=== PATIENT | female | born 1995 | race American Indian/Alaskan Native ===

== ENCOUNTER 2017-07-30 19:09 | Emergency (ER) | payer MEDICAID ==
[2017-07-30 19:45] LABS: Bacteria,Urine 1+ /HPF (Negative); Bilirubin,Urine NEG (Negative); Blood,Urine SM (Negative); Color,Urine Yellow (Yellow); Nitrite,Urine NEG (Negative); Protein,Urine <15 mg/dL mg/dL (Negative); Urobilinogen,Urine < 2.0 mg/dL (<2.0)
[2017-07-30 20:11] LABS: Basophils % (Auto) 0.6 % (0.0-1.8); Eosinophils # (Auto) 0.2 K/mm3 (0.0-0.4); Eosinophils % (Auto) 3.5 % (0.0-4.3); Hematocrit 38.3 % (30.3-42.9); Hemoglobin 12.8 gm/dl (10.1-14.3); Lymphocytes # (Auto) 2.8 K/mm3 (1.2-5.4); Lymphocytes % (Auto) 45.1 % (13.4-35.0); Mean Corpuscular HGB Conc 34 % (30-34); Mean Corpuscular Hemoglobin 30 pg (28-32); Mean Corpuscular Volume 89 fl (79-97); Monocytes # (Auto) 0.6 K/mm3 (0.0-0.8); Monocytes % (Auto) 10.1 % (0.0-7.3); Platelet Count 303 K/mm3 (140-440); Red Cell Distribution Width 13.9 % (13.2-15.2)
[2017-07-30 20:51] LABS: Alanine Aminotransferase 12 units/L (7-56); Albumin 4.7 g/dL (3.9-5); BUN/Creatinine Ratio 15; Blood Urea Nitrogen 6 mg/dL (7-17); Calcium 9.6 mg/dL (8.4-10.2); Hemolysis Index 2; Lipase 16 units/L (13-60)
--- NOTE | 2017-07-30 22:07 | Ultrasound Report ---
FINAL REPORT EXAM: US OB TRANSVAGINAL HISTORY: vaginal bleed, pelvic pain LMP 05/31/2017 with estimated age 8 weeks 4 days and EDC 03/07/2018. Quantitative beta HCG is 35,402. TECHNIQUE: Ultrasound of the pelvis using transabdominal and transvaginal imaging PRIORS: None. FINDINGS: Uterus: Uterus is enlarged in size and normal and homogeneous in echogenicity without focal fibroid formation. The uterus measures 8.1 x 4.7 x 4.4 cm in size. There is a single early viable intrauterine gestation noted. Intrauterine gestation: There is a single intrauterine gestation identified with both a pole and yolk sac. heart rate is monitored at 108 BPM using M-mode doppler. [place]-rump length measurement of 5.9 mm corresponds to estimated age 6 weeks 3 days with EDC 03/22/2018. There is a small subchorionic hemorrhage measuring 4 x 6 x 4 mm located along the caudal right side of the gestational sac. Ovaries: Both ovaries appear normal in size and echogenicity with normal blood flow bilaterally. The right ovary measures 3.6 x 2.8 x 2.4 cm and the left ovary measures 3.3 x 2.4 x 2.1 cm in size. There is a complex avascular cyst in the right ovary measuring 1.7 cm, probably a corpus luteum. Other: There is no evidence for solid adnexal mass is seen. There is no free fluid in the cul-de-sac. IMPRESSION: Single intrauterine viable with an approximate age of 8 weeks 3 days. Small subchorionic hemorrhage is present.
--- NOTE | 2017-07-30 22:07 | Ultrasound Report ---
FINAL REPORT EXAM: US OB < = 14 WEEKS FETUS HISTORY: vaginal bleed, pelvic pain LMP 05/31/2017 with estimated age 8 weeks 4 days and EDC 03/07/2018. Quantitative beta HCG is 35,402. TECHNIQUE: Ultrasound of the pelvis using transabdominal and transvaginal imaging PRIORS: None. FINDINGS: Uterus: Uterus is enlarged in size and normal and homogeneous in echogenicity without focal fibroid formation. The uterus measures 8.1 x 4.7 x 4.4 cm in size. There is a single early viable intrauterine gestation noted. Intrauterine gestation: There is a single intrauterine gestation identified with both a pole and yolk sac. heart rate is monitored at 108 BPM using M-mode doppler. [place]-rump length measurement of 5.9 mm corresponds to estimated age 6 weeks 3 days with EDC 03/22/2018. There is a small subchorionic hemorrhage measuring 4 x 6 x 4 mm located along the caudal right side of the gestational sac. Ovaries: Both ovaries appear normal in size and echogenicity with normal blood flow bilaterally. The right ovary measures 3.6 x 2.8 x 2.4 cm and the left ovary measures 3.3 x 2.4 x 2.1 cm in size. There is a complex avascular cyst in the right ovary measuring 1.7 cm, probably a corpus luteum. Other: There is no evidence for solid adnexal mass is seen. There is no free fluid in the cul-de-sac. IMPRESSION: Single intrauterine viable with an approximate age of 8 weeks 3 days. Small subchorionic hemorrhage is present.
--- NOTE | 2017-07-31 07:12 | Emergency Department Report ---
ED Female HPI - General Chief complaint: Vaginal Bleeding Stated complaint: 8 wks bleeding and cramping Time Seen by Provider: 07/31/17 07:04 Source: patient Mode of arrival: Ambulatory Limitations: No Limitations - History of Present Illness Initial comments: Patient is 21 years old female, 8 weeks presented today with lower abdominal pain, cramping in nature associated with vaginal bleeding for the last 3 days. Patient denied any nausea or vomiting no diarrhea. MD Complaint: vaginal bleeding -: days(s) (3 days) Severity: moderate Quality: cramping - Related Data Sexually active: Yes Allergies Allergy/AdvReac Type Severity Reaction Status Date / Time No Known Allergies Allergy Unverified 04/29/13 14:14 ED Review of Systems ROS: Stated complaint: 8 wks bleeding and cramping Other details as noted in HPI Comment: All other systems reviewed and negative Constitutional: denies: chills, diaphoresis Respiratory: denies: cough, shortness of breath, SOB with exertion Cardiovascular: denies: chest pain, palpitations Gastrointestinal: abdominal pain. denies: nausea, vomiting, diarrhea, hematemesis, melena, hematochezia Genitourinary: denies: urgency, dysuria, frequency, hematuria Musculoskeletal: denies: back pain Skin: denies: rash Neurological: denies: headache, weakness ED Past Medical Hx - Past Medical History Previous Medical History?: No - Surgical History Past Surgical History?: No - Social History Smoking Status: Never Smoker Substance Use Type: None ED Physical Exam - General Limitations: No Limitations General appearance: alert, in no apparent distress - Head Head exam: Present: atraumatic, normocephalic, normal inspection - Eye Eye exam: Present: normal appearance, PERRL - ENT ENT exam: Present: normal exam, normal orophraynx, mucous membranes moist - Neck Neck exam: Present: normal inspection. Absent: tenderness, meningismus, full ROM, lymphadenopathy - Respiratory Respiratory exam: Present: normal lung sounds bilaterally. Absent: respiratory distress, wheezes, rales, rhonchi, stridor, chest wall tenderness, accessory muscle use, decreased breath sounds, prolonged expiratory - Cardiovascular Cardiovascular Exam: Present: regular rate, normal rhythm, normal heart sounds. Absent: bradycardia, tachycardia - GI/Abdominal GI/Abdominal exam: Present: soft, tenderness (suprapubic), normal bowel sounds. Absent: distended, guarding, rebound, rigid, mass, bruit, pulsatile mass, hernia - Extremities Exam Extremities exam: Present: normal inspection. Absent: pedal edema - Back Exam Back exam: Absent: CVA tenderness (R), CVA tenderness (L) - Neurological Exam Neurological exam: Present: alert. Absent: oriented X3, CN II-XII intact, normal gait - Skin Skin exam: Present: warm, intact, normal color ED Course Vital Signs 07/30/17 07/31/17 19:15 05:23 Temperature 98.9 F Pulse Rate 68 Respiratory 16 20 Rate Blood Pressure 115/84 [Right] O2 Sat by Pulse 100 Oximetry ED Medical Decision Making - Lab Data Result diagrams: 07/30/17 19:30 07/30/17 19:30 - Radiology Data Radiology results: report reviewed Referring Physician: SHEILA TOBAR Patient Name: JESSIKA BANERJEE Date of : 1995 Sex: Female Report Date: 2017-07-30 Report Status: [place] [address] Ultrasound Report Signed Patient: JESSIKA BANERJEE MR#: [id number] : 1995 Acct:[id number] Age/Sex: 21 / F ADM Date: 07/30/17 Loc: ED Attending Dr: Ordering Physician: SHEILA TOBAR MD Date of Service: 07/30/17 Procedure(s): US OB transvaginal Accession Number(s): [id number] cc: SHEILA TOBAR MD FINAL REPORT EXAM: US OB TRANSVAGINAL HISTORY: vaginal bleed, pelvic pain LMP 05/31/2017 with estimated age 8 weeks 4 days and EDC 03/07/2018. Quantitative beta HCG is 35,402. TECHNIQUE: Ultrasound of the pelvis using transabdominal and transvaginal imaging PRIORS: None. FINDINGS: Uterus: Uterus is enlarged in size and normal and homogeneous in echogenicity without focal fibroid formation. The uterus measures 8.1 x 4.7 x 4.4 cm in size. There is a single early viable intrauterine gestation noted. Intrauterine gestation: There is a single intrauterine gestation identified with both a pole and yolk sac. heart rate is monitored at 108 BPM using M-mode doppler. [place]-rump length measurement of 5.9 mm corresponds to estimated age 6 weeks 3 days with EDC 03/22/2018. There is a small subchorionic hemorrhage measuring 4 x 6 x 4 mm located along the caudal right side of the gestational sac. Ovaries: Both ovaries appear normal in size and echogenicity with normal blood flow bilaterally. The right ovary measures 3.6 x 2.8 x 2.4 cm and the left ovary measures 3.3 x 2.4 x 2.1 cm in size. There is a complex avascular cyst in the right ovary measuring 1.7 cm, probably a corpus luteum. Other: There is no evidence for solid adnexal mass is seen. There is no free fluid in the cul-de-sac. IMPRESSION: Single intrauterine viable with an approximate age of 8 weeks 3 days. Small subchorionic hemorrhage is present. Transcribed By: [facility] Dictated By: CHEYENNE PRESCOTT MD Electronically Authenticated By: CHEYENNE PRESCOTT MD Signed Date/Time: 07/30/171802 DD/ 02 TD/TT: 07/30/171802 Critical care attestation.: If time is entered above; I have spent that time in minutes in the direct care of this critically ill patient, excluding procedure time. ED Disposition Clinical Impression: Abdominal pain affecting , Vaginal bleeding during , antepartum, UTI in Disposition: DC-01 TO HOME OR SELFCARE Is pt being admited?: No Condition: Stable Instructions: Abdominal Pain in (ED), Urinary Tract Infection in Women (ED) Referrals: CHRISTIANO PERES MD [Primary Care Provider] - 3-5 Days Forms: Work/School Release Form(ED)
[2017-07-31 07:34] VITALS: BP 97/69
== END 2017-07-31 07:50 | disposition home or self-care (01) ==
LOC: ED 19:09
DX: O46.91 Antepartum hemorrhage, unspecified, first trimester (principal); O23.41 Unspecified infection of urinary tract in pregnancy, first trimester; Z3A.08 8 weeks gestation of pregnancy
CPT/HCPCS: 36415; 76801; 76817; 80053; 81001; 83690; 84702; 85025; 86850; 86900; 86901

== ENCOUNTER 2018-02-04 18:08 | Outpatient (CLI) | payer MEDICAID ==
[2018-02-04] MEDS ORDERED: LACTATED RINGERS 500 ML IV ONE (18:10)
[2018-02-04 19:16] LABS: Bacteria,Urine 1+ /HPF (Negative); Bilirubin,Urine NEG (Negative); Blood,Urine NEG (Negative); Color,Urine Yellow (Yellow); Mucus,Urine FEW /HPF; Protein,Urine <15 mg/dL mg/dL (Negative); Urobilinogen,Urine < 2.0 mg/dL (<2.0)
[2018-02-04 19:27] LABS: Amphetamine Screen,Urine PRESUMPTIVE NEGATIVE; Benzodiazepines Screen,Urine PRESUMPTIVE NEGATIVE; Cocaine Screen,Urine PRESUMPTIVE NEGATIVE; Methadone Screen,Urine PRESUMPTIVE NEGATIVE; Opiate Screen,Urine PRESUMPTIVE NEGATIVE
[2018-02-04 19:39] VITALS: BP 100/67
[2018-02-04 20:08] LABS: Cannabinoid Screen,Urine PRESUMPTIVE POSITIVE
== END 2018-02-04 19:57 | disposition home or self-care (01) ==
LOC: TRG 18:08
PROVIDERS: ATTEND Obstetrics & Gynecology
DX: O47.03 False labor before 37 completed weeks of gestation, third trimester (principal); Z3A.33 33 weeks gestation of pregnancy; Z87.891 Personal history of nicotine dependence; Z79.899 Other long term (current) drug therapy
CPT/HCPCS: 59025; 80307; 81001; 96360; J7120

== ENCOUNTER 2018-03-16 04:36 | Inpatient (IN) | payer MEDICAID ==
[2018-03-16] MEDS ORDERED: POLYCILLIN/NS 2 GM/100 ML 2 GM/100 ML BAG IV ONE (05:05)
[2018-03-16] MEDS ORDERED: LACTATED RINGERS 1,000 ML IV ONE (05:05)
[2018-03-16 06:45] LABS: Hematocrit 31.8 % (30.3-42.9); Hemoglobin 10.6 gm/dl (10.1-14.3); Mean Corpuscular HGB Conc 33 % (30-34); Mean Corpuscular Hemoglobin 30 pg (28-32); Mean Corpuscular Volume 89 fl (79-97); Platelet Count 295 K/mm3 (140-440); Red Blood Count 3.56 M/mm3 (3.65-5.03); Red Cell Distribution Width 14.7 % (13.2-15.2)
[2018-03-16] MEDS ORDERED: XYLOCAINE 2% INFILTRATI ONE (07:37)
[2018-03-16] MEDS ORDERED: ZOFRAN IV PRN (07:37)
[2018-03-16] MEDS ORDERED: ePHEDrine SULFATE IV PRN ×2 (07:37→10:25)
[2018-03-16] MEDS ORDERED: SUBLIMAZE IV PRN (07:37)
[2018-03-16] MEDS ORDERED: MINERAL OIL PO PRN (07:37)
[2018-03-16] MEDS ORDERED: BRETHINE SUB-Q PRN (07:37)
[2018-03-16] MEDS ORDERED: LACTATED RINGERS 1,000 ML IV SCH (08:00)
[2018-03-16] MEDS ORDERED: PITOCin/NS 30 UNIT/500ML 30 UNITS/500 ML BAG IV SCH (08:00)
[2018-03-16] MEDS ORDERED: PITOCin/NS 20 UNIT/1000ML DRIP 20 UNITS/1,000 ML BAG IV SCH ×2 (08:00→21:00)
[2018-03-16] MEDS ORDERED: AMPICILLIN/NS 1 GM/50 ML 1 GM/50 ML BAG IV SCH (09:00)
[2018-03-16] MEDS ORDERED: NARCAN 2 MG/2 ML IV PRN (10:25)
--- NOTE | 2018-03-16 10:25 | Anesthesia Consultation ---
Anesthesia Consult and Med Hx Date of service: 03/16/18 - Airway Anesthetic Teeth Evaluation: Good ROM Head & Neck: Adequate Mental/Hyoid Distance: Adequate Mallampati Class: Class II Intubation Access Assessment: Good - Pulmonary Exam CTA: Yes - Cardiac Exam Cardiac Exam: No Murmur - Pre-Operative Health Status ASA Pre-Surgery Classification: ASA2 Proposed Anesthetic Plan: Epidural - Pulmonary Hx Asthma: No Hx Pneumonia: No - Cardiovascular System Hx Hypertension: No - Central Nervous System Hx Seizures: No Hx Psychiatric Problems: No - Endocrine Hx Renal Disease: No Hx Hypothyroidism: No Hx Hyperthyroidism: No - Hematic Hx Anemia: No Hx Sickle Cell Disease: No - Other Systems Hx Alcohol Use: No
[2018-03-16] MEDS ORDERED: fentaNYL-BUPIV 2 MCG/ML-0.125% 200 MCG/100 ML BAG EPIDURAL SCH (11:00)
--- NOTE | 2018-03-16 11:54 | History and Physical Report ---
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, trichomonas Family/Genetic History: none Social history: denies: smoking, alcohol abuse, prescription drug abuse - Obstetrical History Expected Date of Delivery: 03/20/18 Actual Gestation: 39 Week(s) 3 Day(s) : 1 Para: 0 Hx # Term Pregnancies: 0 Number of Pregnancies: 0 Spontaneous Abortions: 0 Induced : 0 Number of Living Children: 0 Medications and Allergies Allergies Allergy/AdvReac Type Severity Reaction Status Date / Time No Known Allergies Allergy Unverified 04/29/13 14:14 Home Medications Medication Instructions Recorded Confirmed Last Taken Type Nitrofurantoin [place]/M-Cryst 100 mg PO Q12HR #14 capsule 07/31/17 02/04/18 Unknown Rx [Macrobid CAP] Ondansetron [Zofran Odt] 4 mg PO Q8HR PRN #14 tab.rapdis 07/31/17 02/04/18 Unknown Rx Ferrous Gluconate [Iron 256 MG tab] 1 tab PO QDAY 02/04/18 02/04/18 1 Month Ago History ~01/04/18 Pnv No.103/Folic/Om3s/Fish Oil 2 tab PO QDAY 02/04/18 02/04/18 02/04/18 10:00 History [ Gummies] Active Meds: Active Medications Ephedrine Sulfate (Ephedrine Sulfate) 10 mg IV Q2M PRN PRN Reason: Hypotension Last Admin: 03/16/18 10:35 Dose: 10 mg Ephedrine Sulfate (Ephedrine Sulfate) 10 mg IV Q2M PRN PRN Reason: Hypotension Fentanyl (Sublimaze) 100 mcg IV Q2H PRN PRN Reason: Labor Pain Ampicillin Sodium (Ampicillin/Ns 1 Gm/50 Ml) 1 gm in 50 mls @ 100 mls/hr IV Q4HR NATHAN; Protocol Lactated Ringer's (Lactated Ringers) 1,000 mls @ 125 mls/hr IV DIRECT NATHAN Oxytocin/Sodium Chloride (Pitocin/Ns 20 Unit/1000ml Drip) 20 units in 1,000 mls @ 125 mls/hr IV DIRECT NATHAN Oxytocin/Sodium Chloride (Pitocin/Ns 30 Unit/500ml) 30 units in 500 mls @ 4 mls /hr IV TITR NATHAN; Protocol Last Admin: 03/16/18 08:55 Dose: 4 ml/hr, 4 mls/hr Fentanyl/Bupivacaine/Sodium Chlor (Fentanyl-Bupiv 2 Mcg/Ml-0.125%) 200 mcg in 100 mls @ 12 mls/hr EPIDURAL TITR NATHAN; Protocol Last Admin: 03/16/18 10:38 Dose: 12 mls/hr Mineral Oil (Mineral Oil) 30 ml PO QHS PRN PRN Reason: Constipation Naloxone HCl (Narcan 2 Mg/2 Ml) 0.2 mg IV Q5M PRN PRN Reason: Respiratory sedation Ondansetron HCl (Zofran) 4 mg IV Q8H PRN PRN Reason: Nausea And Vomiting Terbutaline Sulfate (Brethine) 0.25 mg SUB-Q ONCE PRN PRN Reason: Hyperstimulation/Hypertonicity Review of Systems All systems: negative - Vital Signs Vital signs: Vital Signs Temp Pulse Resp BP 98.6 F 83 18 113/71 03/16/18 04:56 03/16/18 04:56 03/16/18 04:56 03/16/18 04:56 Temp Pulse Resp BP Pulse Ox 98.6 F 118 H 18 107/66 100 03/16/18 04:56 03/16/18 11:38 03/16/18 04:56 03/16/18 11:38 03/16/18 10:36 - Physical Exam Breasts: Positive: normal Cardiovascular: Regular rate Lungs: Positive: Clear to auscultation, Normal air movement Abdomen: Positive: normal appearance, soft Genitourinary (Female): Positive: normal external genitalia, normal perenium Vulva: both: normal Vagina: Positive: normal moisture Uterus: Positive: normal size Anus/Rectum: Positive: normal perianal skin Extremities: Positive: normal Deep Tendon Reflex Grade: Normal +2 - Obstetrical FHR: category 1 Uterine Contraction Monitor Mode: External Cervical Dilatation: 6 (+ clear fluid with blood show, vertex) Cervical Effacement Percentage: 80 station: -1 Uterine Contraction Frequency (min): 2-3 Uterine Contraction Duration: 60 Uterine Contraction Pattern: Regular Uterine Tone Measurement Phase: Contraction Uterine Contraction Intensity: Mild Results Result Diagrams: 03/16/18 05:25 Abnormal lab results 03/16/18 Range/Units 05:25 RBC 3.56 L (3.65-5.03) M/mm3 All other labs normal. Assessment and Plan 22y/o @ 39+ weeks arrived via EMS for SROM. She receives care with Dr. Toro. Records received from his office and reviewed. + GBS. Admission orders in EMR. Currently comfortable with epidural. second dose of ampicillin for GBS infusing. Plan to titrate pitocin for adequate labor. - Patient Problems (1) GBS (group B Streptococcus carrier), +RV culture, currently Current Visit: Yes Status: Acute (2) 39 weeks gestation of Current Visit: Yes Status: Acute (3) SROM (spontaneous rupture of membranes) Current Visit: Yes Status: Acute
[2018-03-16 12:37] LABS: Amphetamine Screen,Urine PRESUMPTIVE NEGATIVE; Benzodiazepines Screen,Urine PRESUMPTIVE NEGATIVE; Cocaine Screen,Urine PRESUMPTIVE NEGATIVE; Methadone Screen,Urine PRESUMPTIVE NEGATIVE; Opiate Screen,Urine PRESUMPTIVE NEGATIVE
[2018-03-16 12:53] LABS: Cannabinoid Screen,Urine PRESUMPTIVE POSITIVE
[2018-03-16] MEDS ORDERED: CYTOTEC ONE (16:15)
--- NOTE | 2018-03-16 16:30 | Procedure Note ---
OB Delivery Note - Delivery Date of Delivery: 03/16/18 ( male) Window Glass Installer: JHON MENESES Estimated blood loss: other (450) - Vaginal Delivery presentation: vertex Delivery position: OA (RED) Intrapartum events: none Delivery induction: none Delivery augmentation: pitocin Delivery monitor: external FHT, internal uterine Route of delivery: Delivery placenta: spontaneous Delivery cord: 3 umbilical vessels Episiotomy: none Delivery laceration: 1st degree (vaginal laceration; not bleeding, not repaired) Anesthesia: epidural Delivery comments: male infant del over intact perineum, RED. Infant dried and stimulated on mother's abdomen. no shoulder dystocia. 3 vessel cord clamped and cut. placenta del intact and complete. Pit to IVF. uterus boggy with increased bleeding after del of placenta. Fundal massage, straight cath and cytotec 800mcg placed [place] resolved bleeding. EBL 450. Apgars 8/9, wt 7#4. small vaginal laceration hemostatic - not repaired. Mother and remain LDR stable. - Infant A at 1 minute: 8 at 5 minutes: 9 Infant Gender: Male (7#4oz)
[2018-03-16] MEDS ORDERED: CYTOTEC PR ONE (18:00)
[2018-03-16] MEDS ORDERED: SODIUM CHLORIDE FLUSH SYRINGE 10 ML IV SCH (19:59)
[2018-03-16] MEDS ORDERED: TYLENOL PO PRN (19:59)
[2018-03-16] MEDS ORDERED: BENADRYL PO PRN (19:59)
[2018-03-16] MEDS ORDERED: TUCKS PAD TP PRN (19:59)
[2018-03-16] MEDS ORDERED: PHENERGAN PO PRN (19:59)
[2018-03-16] MEDS ORDERED: DERMOPLAST TP PRN (19:59)
[2018-03-16] MEDS ORDERED: DULCOLAX PR PRN (19:59)
[2018-03-16] MEDS ORDERED: LANSINOH TP PRN (19:59)
[2018-03-16] MEDS ORDERED: MILK OF MAGNESIA PO PRN (19:59)
[2018-03-16] MEDS: MOTRIN PO SCH (22:13)
[2018-03-16] MEDS: FEOSOL PO SCH (22:13)
[2018-03-16] MEDS: COLACE PO SCH (22:14)
[2018-03-17] MEDS: MOTRIN PO SCH ×4 (05:44→23:45)
--- NOTE | 2018-03-17 06:59 | Discharge Summary ---
Providers - Providers Date of Admission: 03/16/18 05:44 Date of discharge: 03/17/18 (pt desires d/c today if possible) Attending physician: DANIEL GALVEZ 03/16/18 19:59 Consult to Roofing Plant Supervisor [CONS] Routine Reason For Exam: assistance with , SNS Primary care physician: DANIEL GALVEZ Hospitalization Reason for admission: active labor Delivery: Episiotomy: none Laceration: none Incision: normal Other procedures: none complications: none Discharge diagnosis: IUP at term delivered baby: male Hospital course: uncomplicated vaginal delivery Pt resting No c/o voiced VSS FF below umb Lochia small perineum intact H&H pending Doing well s/p vag delivery P: d/c today if baby is cleared. RTO 1 week circ and 4 weeks for PP care Condition at discharge: Good Disposition: DC-01 TO HOME OR SELFCARE - Discharge Diagnoses (1) (normal spontaneous vaginal delivery) Status: Acute Comment: RTO 4 weeks PP care Plan - Discharge Medications Prescriptions: Lidocain2.5%/Prilocai2.5% [Emla] 5 gm TP PRN #1 tube - Provider Discharge Summary Activity: routine, no heavy lifting 4 weeks, no strenuous exercise Diet: routine Instructions: routine Additional instructions: [] Smoking cessation referral if applicable(refer to patient education folder for contact #) [] Refer to [facility]'s [facility] Booklet Call your doctor immediately for: * Fever > 100.5 * Heavy vaginal bleeding ( >1 pad per hour) * Severe persistent headache * Shortness of breath * Reddened, hot, painful area to leg or breast * Drainage or odor from incision. * Keep incision clean and dry at all times and follow doctor's instructions regarding bathing/showering - Follow up plan Follow up: DANIEL GALVEZ MD [Primary Care Provider] - 7 Days (Congratulations! Please call [phone] to schedule your visit in 4 weeks and your son's circumcision in 1 week. Bring the EMLA cream with you to his visit. Do NOT use at home. [facility] [address] [address] [facility] [address])
[2018-03-17 07:57] LABS: Hematocrit 27.8 % (30.3-42.9); Hemoglobin 9.3 gm/dl (10.1-14.3)
[2018-03-17] MEDS ORDERED: PRENATAL VITAMIN PO SCH (10:00)
[2018-03-17] MEDS: FEOSOL PO SCH ×2 (12:03→23:44)
[2018-03-17] MEDS ORDERED: BOOSTRIX IM ONE (16:31)
[2018-03-17] MEDS: COLACE PO SCH (23:44)
[2018-03-18 01:19] VITALS: BP 102/64
[2018-03-18] MEDS: MOTRIN PO SCH (06:00)
== END 2018-03-18 10:15 | disposition home or self-care (01) | DRG 774 ==
LOC: TRG 04:36 → LD 05:44 → OB 18:01
PROVIDERS: ADMIT Obstetrics & Gynecology; ATTEND Obstetrics & Gynecology
PROC: 10E0XZZ Delivery of Products of Conception, External Approach (ICD-10-PCS; principal; 2018-03-16)
PROC: 3E0R3BZ Introduction of Anesthetic Agent into Spinal Canal, Percutaneous Approach (ICD-10-PCS; 2018-03-16)
PROC: 00HU33Z Insertion of Infusion Device into Spinal Canal, Percutaneous Approach (ICD-10-PCS; 2018-03-16)
DX: O99.824 Streptococcus B carrier state complicating childbirth (principal); O98.22 Gonorrhea complicating childbirth; O70.0 First degree perineal laceration during delivery; Z3A.39 39 weeks gestation of pregnancy; Z37.0 Single live birth; O98.32 Other infections with a predominantly sexual mode of transmission complicating childbirth; A59.9 Trichomoniasis, unspecified
CPT/HCPCS: 36415; 80307; 85014; 85018; 85027; 86592; 86706; 86850; 86900; 86901; 99211; G0463; J0290; J2590; J7120

== ENCOUNTER 2018-10-27 21:32 | Emergency (ER) | payer MEDICAID, OTHER ==
--- NOTE | 2018-10-27 21:43 | Emergency Department Report ---
Blank Doc - Documentation Documentation: This is a 22-year-old female that presents with mid/lower back pain. Denies any injuries or trauma. Denies any urinary symptoms. This initial assessment/diagnostic orders/clinical plan/treatment(s) is/are subject to change based on patient's health status, clinical progression and re- assessment by fellow clinical providers in the ED. Further treatment and workup at subsequent clinical providers discretion. Patient/guardians urged not to elope from the ED as their condition may be serious if not clinically assessed and managed. Initial orders include: 1- Patient sent to MAIN ED for further evaluation and treatment 2- UA/preg test
[2018-10-27 23:21] LABS: Bacteria,Urine 1+ /HPF (Negative); Bilirubin,Urine NEG (Negative); Blood,Urine NEG (Negative); Color,Urine Yellow (Yellow); Mucus,Urine FEW /HPF
[2018-10-27 23:22] LABS: HCG Qualitative,Urine Negative (Negative)
[2018-10-27 23:23] LABS: WBC,Urine > 182.0 /HPF (0.0-6.0)
[2018-10-28] MEDS ORDERED: TORADOL IM ONE (00:07)
--- NOTE | 2018-10-28 00:09 | Emergency Department Report ---
ED Female HPI - General Chief complaint: Abdominal Pain Stated complaint: BACK PAIN Time Seen by Provider: 10/27/18 21:43 Source: patient Mode of arrival: Ambulatory Limitations: No Limitations - History of Present Illness MD Complaint: dysuria, other (flank pain, left) -: days(s) Quality: sharp Worsens with: urination - Related Data Home Medications Medication Instructions Recorded Confirmed Last Taken No Known Home Medications [No 10/27/18 10/27/18 Unknown Reported Home Medications] Allergies Allergy/AdvReac Type Severity Reaction Status Date / Time No Known Allergies Allergy Verified 10/27/18 21:35 ED Review of Systems ROS: Stated complaint: BACK PAIN Other details as noted in HPI Comment: All other systems reviewed and negative Constitutional: denies: chills, fever Respiratory: denies: cough, orthopnea, shortness of breath, SOB with exertion Cardiovascular: denies: chest pain, palpitations Gastrointestinal: denies: abdominal pain, nausea, vomiting, diarrhea, constipation, hematemesis Genitourinary: urgency, frequency Musculoskeletal: back pain ED Past Medical Hx - Past Medical History Hx Hypertension: No Hx Diabetes: No Hx Deep Vein Thrombosis: No Hx Renal Disease: No Hx Sickle Cell Disease: No Hx Seizures: No Hx Asthma: No Hx HIV: No - Social History Smoking Status: Never Smoker Substance Use Type: None - Medications Home Medications: Home Medications Medication Instructions Recorded Confirmed Last Taken Type No Known Home Medications [No 10/27/18 10/27/18 Unknown History Reported Home Medications] ED Physical Exam - General Limitations: No Limitations General appearance: alert, in no apparent distress - Head Head exam: Present: atraumatic, normocephalic, normal inspection - Eye Eye exam: Present: normal appearance - ENT ENT exam: Present: normal exam, normal orophraynx, mucous membranes moist - Respiratory Respiratory exam: Present: normal lung sounds bilaterally - Cardiovascular Cardiovascular Exam: Present: regular rate, normal rhythm, normal heart sounds - GI/Abdominal GI/Abdominal exam: Present: soft, normal bowel sounds. Absent: distended, te nderness, guarding, rebound, rigid - Extremities Exam Extremities exam: Present: normal inspection, full ROM, normal capillary refill - Back Exam Back exam: Present: CVA tenderness (L). Absent: CVA tenderness (R) - Neurological Exam Neurological exam: Present: alert, oriented X3, CN II-XII intact - Skin Skin exam: Present: warm, intact, normal color ED Course Vital Signs 10/27/18 21:47 Temperature 98.4 F Pulse Rate 68 Respiratory 18 Rate Blood Pressure 111/53 O2 Sat by Pulse 100 Oximetry Critical care attestation.: If time is entered above; I have spent that time in minutes in the direct care of this critically ill patient, excluding procedure time. ED Disposition Clinical Impression: Back pain, UTI (urinary tract infection) Disposition: TO HOME OR SELFCARE Is pt being admited?: No Condition: Stable Instructions: Abdominal Pain (ED), Urinary Tract Infection in Women (ED) Referrals: RAMIRO FARAH MD [Primary Care Provider] - 3-5 Days
[2018-10-28 00:22] VITALS: BP 110/77
== END 2018-10-28 00:21 | disposition home or self-care (01) ==
LOC: ED 21:32
DX: N39.0 Urinary tract infection, site not specified (principal)
CPT/HCPCS: 81001; 81025; 96372; 99283; J1885

== ENCOUNTER 2018-10-29 17:41 | Emergency (ER) | payer OTHER ==
--- NOTE | 2018-10-29 17:47 | Emergency Department Report ---
Chief Complaint: Abdominal Pain Stated Complaint: KIDNEY INFECTION Time Seen by Provider: 10/29/18 17:46 - HPI History of Present Illness: This is a 22 y.o. female that presents with nausea. Patient seen in this ER yesterday and diagnosed with UTI. - ROS Review of Systems: left flank pain - Exam Vital Signs: Vital Signs 10/29/18 17:50 Temperature 100.0 F H Pulse Rate 112 H Respiratory 22 Rate Blood Pressure 135/87 O2 Sat by Pulse 100 Oximetry MSE screening note: Focused history and physical exam performed. Due to findings the following was ordered: Fast track for further evaluation. ED Disposition for MSE Condition: Stable Instructions: Abdominal Pain (ED)
[2018-10-29] MEDS ORDERED: NORCO 7.5/325 PO ONE (20:08)
[2018-10-29] MEDS ORDERED: NACL 0.9% 1000 ML 1,000 ML IV ONE (20:08)
[2018-10-29] MEDS ORDERED: ZOFRAN IV ONE (20:08)
[2018-10-29 20:27] VITALS: BP 111/61
[2018-10-29 20:41] LABS: Basophils % (Auto) 0.2 % (0.0-1.8); Hematocrit 34.1 % (30.3-42.9); Lymphocytes # (Auto) 1.1 K/mm3 (1.2-5.4); Lymphocytes % (Auto) 6.6 % (13.4-35.0); Mean Corpuscular HGB Conc 32 % (30-34); Mean Corpuscular Volume 84 fl (79-97); Monocytes # (Auto) 1.5 K/mm3 (0.0-0.8); Monocytes % (Auto) 9.7 % (0.0-7.3); Platelet Count 290 K/mm3 (140-440); Red Blood Count 4.07 M/mm3 (3.65-5.03); Red Cell Distribution Width 15.4 % (13.2-15.2)
[2018-10-29 20:58] LABS: Alanine Aminotransferase 12 units/L (7-56); Albumin 3.7 g/dL (3.9-5); BUN/Creatinine Ratio 10; Blood Urea Nitrogen 6 mg/dL (7-17); Calcium 8.6 mg/dL (8.4-10.2); Hemolysis Index 8
--- NOTE | 2018-10-29 21:07 | Emergency Department Report ---
ED General Adult HPI - General Chief complaint: Abdominal Pain Stated complaint: KIDNEY INFECTION Time Seen by Provider: 10/29/18 17:46 Source: patient Mode of arrival: Ambulatory Limitations: No Limitations - History of Present Illness Initial comments: 22-year-old -[place] female comes back to the emergency room after being seen on 10/28/2018 and was diagnosed with a UTI has continuing nausea vomiting and poor appetite. Patient reports that she has developed a fever and severe left flank pain. Patient reports that she has been started on antibiotics yesterday of Macrobid and naproxen. Patient reports no known drug allergies no past medical history. -: week(s) (1) Location: back, left Severity scale (0 -10): 10 Quality: sharp Consistency: constant Improves with: none Worsens with: none Associated Symptoms: fever/chills, loss of appetite, nausea/vomiting Treatments Prior to Arrival: NSAID - Related Data Previous Rx's Medication Instructions Recorded Last Taken Type Naproxen [Naprosyn] 500 mg PO BID #14 tablet 10/28/18 Unknown Rx Nitrofurantoin [place]/M-Cryst 100 mg PO Q12HR #14 capsule 10/28/18 Unknown Rx [Macrobid CAP] Allergies Allergy/AdvReac Type Severity Reaction Status Date / Time No Known Allergies Allergy Verified 10/29/18 21:13 ED Review of Systems ROS: Stated complaint: KIDNEY INFECTION Other details as noted in HPI Constitutional: chills, fever Musculoskeletal: back pain ED Past Medical Hx - Past Medical History Previous Medical History?: No Hx Hypertension: No Hx Diabetes: No Hx Deep Vein Thrombosis: No Hx Renal Disease: No Hx Sickle Cell Disease: No Hx Seizures: No Hx Asthma: No Hx HIV: No - Surgical History Past Surgical History?: No - Social History Smoking Status: Unknown if ever smoked Substance Use Type: None - Medications Home Medications: Home Medications Medication Instructions Recorded Confirmed Last Taken Type Naproxen [Naprosyn] 500 mg PO BID #14 tablet 10/28/18 Unknown Rx Nitrofurantoin [place]/M-Cryst 100 mg PO Q12HR #14 capsule 10/28/18 Unknown Rx [Macrobid CAP] ED Physical Exam - General Limitations: No Limitations General appearance: alert, in no apparent distress - Head Head exam: Present: atraumatic, normocephalic - Eye Eye exam: Present: EOMI - ENT ENT exam: Present: mucous membranes moist - Neck Neck exam: Present: normal inspection - Respiratory Respiratory exam: Present: normal lung sounds bilaterally. Absent: respiratory distress - Cardiovascular Cardiovascular Exam: Present: tachycardia - GI/Abdominal GI/Abdominal exam: Present: soft, tenderness. Absent: distended - Back Exam Back exam: Present: CVA tenderness (L) - Neurological Exam Neurological exam: Present: alert, oriented X3 - Psychiatric Psychiatric exam: Present: normal affect, normal mood - Skin Skin exam: Present: warm, dry, intact, normal color. Absent: rash ED Course Vital Signs 10/29/18 10/29/18 17:50 20:10 Temperature 100.0 F H 99.0 F Pulse Rate 112 H 88 Respiratory 22 20 Rate Blood Pressure 135/87 Blood Pressure 111/61 [Right] O2 Sat by Pulse 100 100 Oximetry - Reevaluation(s) Reevaluation #1: 10/29/18 22:38 Patient reports she feels much better after having fluids , antibiotics, pain medication and antinausea medication. ED Medical Decision Making - Lab Data Result diagrams: 10/29/18 20:19 10/29/18 20:19 - Medical Decision Making Patient has been evaluated by this provider and [facility]. Patient is CBC, CMP, lactic acid, urinalysis, urine culture and CT of abdomen and pelvic. Patient and order normal saline, Zofran 4 mg IV and Percocet 7.5 mg by mouth. Critical care attestation.: If time is entered above; I have spent that time in minutes in the direct care of this critically ill patient, excluding procedure time. ED Disposition Clinical Impression: UTI (urinary tract infection) Qualifiers: Urinary tract infection type: site unspecified Hematuria presence: without hematuria Qualified Code(s): N39.0 - Urinary tract infection, site not specified Disposition: DC-01 TO HOME OR SELFCARE Is pt being admited?: No Does the pt Need Aspirin: No Condition: Stable Instructions: Abdominal Pain (ED), Urinary Tract Infection in Women (ED) Additional Instructions: Please continue antibiotics as prescribed on 10/28/2018. Take pain medication as needed. Increase your fluid intake while taking medications. Referrals: WALDO CALERO MD [Primary Care Provider] - 3-5 Days Forms: Work/School Release Form(ED)
[2018-10-29] MEDS ORDERED: ROCEPHIN 500 MG in NACL 0.9% 50 ML IV ONE (21:09)
[2018-10-29 21:13] LABS: Bilirubin,Urine NEG (Negative); Color,Urine Amber (Yellow)
[2018-10-29 21:14] LABS: Bacteria,Urine 1+ /HPF (Negative); Blood,Urine NEG (Negative); Mucus,Urine 3+ /HPF
[2018-10-29] MEDS ORDERED: K-DUR PO ONE (21:25)
[2018-10-29] MEDS ORDERED: ROCEPHIN/NS 1 GM/50 ML 0 GM/0 ML BAG IV ONE (21:27)
--- NOTE | 2018-10-29 21:52 | Cat Scan Report ---
PROCEDURE: CT ABDOMEN PELVIS WO CON TECHNIQUE: Computerized axial tomography of the abdomen and pelvis was performed after the IV inject ion of iodinated nonionic contrast. CT DOSE LENGTH PRODUCT: mGycm HISTORY: abd and back pain PROCEDURE: CT ABDOMEN PELVIS WO CON TECHNIQUE: Computerized axial tomography of the abdomen and pelvis was performed without intravenous contrast. This study is performed without intravascular contrast material and its sensitivity for ab dominal and pelvic pathology, including neoplasms, inflammation, abscess, free fluid, thrombosis, art erial dissection and infarction, is reduced compared with a contrast enhanced study. FINDINGS: Liver demonstrates a well-defined cystic lesion measuring 1.2 x 1.3 cm located in segment 7. Spleen, pancreas and adrenal glands are within normal limits. Bilateral kidneys demonstrate normal density wi thout calculi or hydronephrosis. Urinary bladder is empty. Minimal degree of free fluid is noted in t he pelvic cavity which is within physiologic limits. There is no free air. Gallbladder is unremarkabl e. Small bowel loops are within normal limits. Appendix is not distinctly visualized. There are no in flammatory changes in the right lower quadrant. Vertebral height is normal. IMPRESSION: No acute intra-abdominal or pelvic pathology as visualized on this noncontrast study Well-defined cystic lesion right lobe liver measuring 1.2 x 1.3 cm. Ultrasound evaluation is recommen ded. This document is electronically signed by Nadeem Hurd MD., October 29 2018 09:50:12 PM ET
== END 2018-10-29 22:44 | disposition home or self-care (01) ==
LOC: ED 17:41
DX: N39.0 Urinary tract infection, site not specified (principal)
CPT/HCPCS: 36415; 74176; 80053; 81001; 82140; 85025; 87086; 96365; 96375; 99284; J0696; J2405; J7030

== ENCOUNTER 2021-03-21 22:47 | Emergency (ER) | payer MEDICAID, OTHER | END 2021-03-22 04:46 | disposition left against medical advice (07) | LOC: ED 22:47 | DX: N89.8 Other specified noninflammatory disorders of vagina (principal); Z53.21 Procedure and treatment not carried out due to patient leaving prior to being seen by health care provider ==